=== PATIENT | male | born 1990 | race Caucasian/White ===

== ENCOUNTER 2024-08-10 15:51 | Emergency (ER) | payer OTHER, SELFPAY ==
[2024-08-10] MEDS ORDERED: FAMOTIDINE 20 MG/2 ML VIAL IV ONE (16:29)
[2024-08-10] MEDS ORDERED: dexAMETHasone 10 MG/ML VIAL ONE ×2 (16:29→17:15)
[2024-08-10] MEDS ORDERED: DIPHENHYDRAMINE 50 MG/ML VIAL ONE (16:29)
[2024-08-10] MEDS ORDERED: NA CHLORIDE 0.9% 1,000 ML ONE (16:29)
--- NOTE | 2024-08-10 17:11 | ER ---
Nurse's Notes 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 Coronavirus screen: At this time, the client does not indicate any symptoms associated with coronavirus-19. Ebola Screen: No symptoms or risks identified at this time. 15:58 Method Of Arrival: Ambulatory iw 15:59 Onset: The symptoms/episode began/occurred suddenly. Initial Sepsis Screen: Does the iw patient meet any 2 criteria? No. Patient's initial sepsis screen is negative. Does the patient have a suspected source of infection? No. Patient's initial sepsis screen is negative. Risk Assessment: Do you want to hurt yourself or someone else? Patient reports no desire to harm self or others. 15:59 Acuity: DENISE 3 iw 17:36 Onset of symptoms was August 10, 2024. db Historical: - Allergies: 16:00 AVOCADO (LAURUS PERSEA); iw 16:00 Banana; iw - Home Meds: 16:00 None [Active]; iw - PMHx: 16:00 None; iw - PSHx: 16:00 eye; leg; iw - Immunization history:: Adult Immunizations unknown, Adult Immunizations. - Infectious Disease History:: Denies. - Social history:: Smoking status: Patient denies any tobacco usage or history of. Screenin:20 [facility] ED Fall Risk Assessment (Adult) History of falling in the last 3 months, db including since admission No falls in past 3 months (0 pts) Confusion or Disorientation No (0 pts) Intoxicated or Sedated No (0 pts) Impaired Gait No (0 pts) Mobility Assist Device Used No (0 pt) Altered Elimination No (0 pt) Score/Fall Risk Level 0 - 2 = Low Risk Oriented to surroundings, Maintained a safe environment. Abuse screen: Denies threats or abuse. Denies injuries from another. Nutritional screening: No deficits noted. Tuberculosis screening: No symptoms or risk factors identified. Assessment: 16:20 Reassessment: Patient appears in no apparent distress at this time. Patient and/or db family updated on plan of care and expected duration. Pain level reassessed. Patient is alert, oriented x 3, equal unlabored respirations, skin warm/dry/pink. General: Appears in no apparent distress. comfortable, Behavior is calm, cooperative. Pain: Denies pain. Neuro: Level of Consciousness is awake, alert, obeys commands, Oriented to person, place, time, situation. Cardiovascular: No deficits noted. Respiratory: Airway is patent Respiratory effort is even, unlabored, Respiratory pattern is regular, symmetrical, Breath sounds are clear. GI: No deficits noted. No signs and/or symptoms were reported involving the gastrointestinal system. : No deficits noted. No signs and/or symptoms were reported regarding the genitourinary system. Vital Signs: 15:59 BP 115 / 74; Pulse 94; iw 15:59 BP 115 / 74; Pulse 96; Resp 16; Pulse Ox 93% ; Weight 83.91 kg; Height 5 ft. 8 in. ; iw 16:30 BP 114 / 71; Pulse 69; Resp 18; Pulse Ox 97% on R/A; db 15:59 Body Mass Index 28.13 (83.91 kg, 172.72 cm) iw [place] Coma Score: 16:20 Eye Response: spontaneous(4). Motor Response: obeys commands(6). Verbal Response: db oriented(5). Total: 15. ED Course: 15:52 Patient arrived in ED. im 15:54 Yuli Novak FNP-C is PHCP. kb 15:54 Roly Huerta MD is Attending Physician. kb 16:00 Triage completed. iw 16:20 Patient has correct armband on for positive identification. Bed in low position. Call db light in reach. Side rails up X 1. Pulse ox on. NIBP on. Pillow given. 16:22 Angelic Ramos, DUNIA is Primary Nurse. db 16:22 Inserted saline lock: 20 gauge in right antecubital area, using aseptic technique. db Blood collected. Flushed with 10 mL NS. 17:36 No provider procedures requiring assistance completed. IV discontinued, intact, db bleeding controlled, No redness/swelling at site. Pressure dressing applied. Administered Medications: 16:25 Drug: diphenhydrAMINE IVP 25 mg IVP once Route: IVP; Site: right antecubital; db 16:25 Drug: NS 0.9% IV 1000 ml IV at 1000 ml once; to be given as a bolus over 60 minutes db Route: IV; Rate: 1000 ml; Site: right antecubital; 16:28 Drug: Decadron - Dexamethasone IVP 10 mg IVP once Route: IVP; Site: right antecubital; db 16:30 Drug: Famotidine IVP 20 mg IVP once; dilute with 10 mL 0.9% NaCl; give over 2 minutes db Route: IVP; Site: right antecubital; 17:27 Drug: predniSONE PO 40 mg PO once Route: PO; db Medication: 16:20 VIS not applicable for this client. db Outcome: 17:11 Discharge ordered by . kb 17:36 Discharged to home ambulatory, with family, db 17:36 Condition: good 17:36 Discharge instructions given to patient, Instructed on discharge instructions, follow up and referral plans. medication usage, Demonstrated understanding of instructions, follow-up care, medications, Prescriptions given X 3, 17:36 Patient left the ED. 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 db db
--- NOTE | 2024-08-10 17:11 | EDPHYS ---
Physician Documentation [facility] Name: Marcos Reaves Age: 34 yrs Sex: Male : 1990 Arrival Date: 08/10/2024 Time: 15:51 Bed 15 Private MD: ED Physician Roly Huerta HPI: 08/10 16:55 This 34 yrs old Male presents to ER via Ambulatory with complaints of Allergic Reaction.kb 16:55 Pt is a 34 year old male who presents for allergic reaction to avocado. States he went kb to eat at [employer] and they put avocado ranch on his plate instead of regular ranch. States he went home from there and injected his epipen, but still felt tightness in his throat so he came in for evaluation. Denies shortness of breath. Historical: - Allergies: 16:00 AVOCADO (LAURUS PERSEA); iw 16:00 Banana; iw - Home Meds: 16:00 None [Active]; iw - PMHx: 16:00 None; iw - PSHx: 16:00 eye; leg; iw - Immunization history:: Adult Immunizations unknown, Adult Immunizations. - Infectious Disease History:: Denies. - Social history:: Smoking status: Patient denies any tobacco usage or history of. ROS: 16:55 Constitutional: As per HPI kb Exam: 16:55 Constitutional: This is a well developed, well nourished patient who is awake, alert, kb and in no acute distress. Head/Face: Normocephalic, atraumatic. ENT: Moist Mucous membranes Cardiovascular: Regular rate Respiratory: Respirations even and unlabored. No increased work of breathing. Talking in full sentences Skin: Warm, dry with normal turgor. Normal color. MS/ Extremity: Pulses equal, no cyanosis. Neurovascular intact. Full, normal range of motion. Neuro: Awake and alert, GCS 15, oriented to person, place, time, and situation. Vital Signs: 15:59 BP 115 / 74; Pulse 94; iw 15:59 BP 115 / 74; Pulse 96; Resp 16; Pulse Ox 93% ; Weight 83.91 kg; Height 5 ft. 8 in. ; iw 16:30 BP 114 / 71; Pulse 69; Resp 18; Pulse Ox 97% on R/A; db 15:59 Body Mass Index 28.13 (83.91 kg, 172.72 cm) iw Maryann Coma Score: 16:20 Eye Response: spontaneous(4). Motor Response: obeys commands(6). Verbal Response: db oriented(5). Total: 15. MDM: 15:54 Medical Screening Exam initiated kb 16:56 Differential diagnosis: anaphylaxis, angioedema, urticaria. Data reviewed: vital signs, kb nurses notes. Historians other than the Patient: Spouse/Significant Other: spouse. Counseling: I had a detailed discussion with the patient and/or guardian regarding the historical points, exam findings, and any diagnostic results supporting the discharge/admit diagnosis, the need for outpatient follow up, a family practitioner, to return to the emergency department if symptoms worsen or persist or if there are any questions or concerns that arise at home. ED course: Pt feeling better after treatment. 08/10 15:55 Order name: IV Start; Complete Time: 16:40 kb 08/10 16:54 Order name: PO challenge; Complete Time: 17:27 kb Administered Medications: 16:25 Drug: diphenhydrAMINE IVP 25 mg IVP once Route: IVP; Site: right antecubital; db 16:25 Drug: NS 0.9% IV 1000 ml IV at 1000 ml once; to be given as a bolus over 60 minutes db Route: IV; Rate: 1000 ml; Site: right antecubital; 16:28 Drug: Decadron - Dexamethasone IVP 10 mg IVP once Route: IVP; Site: right antecubital; db 16:30 Drug: Famotidine IVP 20 mg IVP once; dilute with 10 mL 0.9% NaCl; give over 2 minutes db Route: IVP; Site: right antecubital; 17:27 Drug: predniSONE PO 40 mg PO once Route: PO; db Disposition Summary: 08/10/24 17:11 Discharge Ordered Notes: Location: Home kb Condition: Stable kb Diagnosis - Allergy to other foods - avocado kb Followup: kb - With: Emergency Department - When: As needed - Reason: Worsening of condition Followup: kb - With: Private Physician - When: 2 - 3 days - Reason: Recheck today's complaints, Continuance of care, Re-evaluation by your physician Discharge Instructions: - Discharge Summary Sheet kb - Food Allergy, [id number] kb Forms: - Medication Reconciliation Form kb - Antibiotic Education kb - Prescription Opioid Use kb - Patient Portal Instructions kb - Leadership Thank You Letter kb - Work release form em1 Prescriptions: - EpiPen 0.3 mg/0.3 mL Injection Auto-Injector - administer 0.3 milligram INTRAMUSCULAR route as directed As needed as needed kb for hypersensitivity reaction; 1 Applicator; Refills: 0, Product Selection Permitted - Pepcid 20 mg Oral Tablet - take 1 tablet ORAL route every 12 hours for 5 days; 10 tablet; Refills: 0, kb Product Selection Permitted - Prednisone 20 mg Oral Tablet - take 1 tablet ORAL route once daily for 5 days; 5 tablet; Refills: 0, Product kb Selection Permitted Addendum: 08/12/2024 01:25 Co-signature as Attending Physician, Roly Huerta MD I agree with the assessment and c limon plan of care. Signatures: Yuli Novak, TESTING AND REGULATING CHIEF-C TESTING AND REGULATING CHIEF-Roly Toledo MD MD cha Williams, Irene, RN Angelic Saenz RN RN db
[2024-08-10] MEDS ORDERED: predniSONE 20 MG TAB ONE (17:15)
[2024-08-10 18:35] VITALS: BP 115/74; O2SAT 93
== END 2024-08-10 17:36 | disposition home or self-care (01) ==
LOC: ER 15:51
DX: R07.0 Pain in throat (principal); Z91.018 Allergy to other foods
CPT/HCPCS: 96375; 96374; 99284; J7512; J1200; J1100; J7030